=== PATIENT | male | born 1975 | race Caucasian/White ===

== ENCOUNTER 2023-11-22 16:41 | Emergency (ER) | payer OTHER, SELFPAY ==
[2023-11-22 16:43] VITALS: BP 149/101; PULSE 97; RESP 18; TEMP 36.4; O2SAT 98; BMI 22.4
--- NOTE | 2023-11-22 17:24 | ED_ITS ---
HPI - Dental/Oral General Date Seen: 11/22/23 Chief complaint: Dental/Oral/Mouth Injury/Pain Stated complaint: Tooth infection L side Time Seen by Provider: 11/22/23 17:01 Source: patient Mode of arrival: ambulatory Limitations: no limitations History of Present Illness HPI Narrative: Patient is a 48-year-old male with a history of dental problems have been getting worse over the past 6 months. States over the past few days he is having pain is left lower 2. Started about 3-4 days ago go by been getting worse. Today he states he had take 15 aspirin trying help with the pain with m inimal improvement. States it hurts when he chews to that area or if he touches the area of concern. States is the only day he has been taking aspirin. Says he took what 7 or 8 of them shortly prior to coming. Admits he has quite a bit of dental issues and needs to see a dentist but currently does not have insurance. Denies trismus, sore throat, dyspnea, weakness, numbness, fevers, chills Related Data Previous Rx's Medication Instructions Recorded amoxicillin 875 mg-potassium 1 tab PO BID #10 tabs 11/22/23 clavulanate 125 mg tablet Allergies Allergy/AdvReac Type Severity Reaction Status Date / Time No Known Drug Allergies Allergy Verified 11/22/23 16:50 Review of Systems Narrative: pertinent systems reviewed and were negative unless stated in HPI Exam Narrative: Exam Narrative: Const: Well-nourished, Well-developed, in mild distress Eyes: PERRL, no conjunctival injection, and symmetrical lids HENT: Atraumatic external nose and ears. Moist mucous membranes, poor dentition with multiple missing teeth and dental caries. There is what appears to be a portion of tooth left in the socket at about tooth 18 consistent with where his pain is. No swelling noted underneath his tongue, uvula midline, no tonsillar exudate or swelling Neck: Symmetric, trachea midline, No thyromegaly. CVS: RRR, No murmurs or gallops. Peripheral pulses 2+ and equal in all extremities RESP: Unlabored respiratory effort. Clear to auscultation bilaterally. GI: Nontender/Nondistended, No rebound or guarding. MSK:Extremities w/o deformity, Normal Active ROM Skin: Warm, Dry. No rashes or lesions. Neuro: Normal Muscle tone, No focal neurological deficits. Psych: Awake, Alert, & Oriented x3. Appropriate mood and affect. Const: Vital Signs, click to edit/add: Vital Signs - 24 hr 11/22/23 16:43 Temperature 97.6 F Pulse Rate [Pulse Oximeter] 97 Respiratory Rate 18 Blood Pressure [Ri ght Upper Arm] 149/101 H Pulse Oximetry 98 Oxygen Delivery Me thod Room Air Course Vital Signs Vital signs: Initial Vital Signs Temperature 97.6 F 11/22/23 16:43 Temperature Source Temporal Artery Scan 11/22/23 16:43 Pulse Rate 97 11/22/23 16:43 Respiratory Rate 18 11/22/23 16:43 Blood Pressure 149/101 H 11/22/23 16:43 Blood Pressure Mean 117 H 11/22/23 16:43 Blood Pressure Position Sitting 11/22/23 16:43 Pulse Oximetry 98 11/22/23 16:43 Oxygen Delivery Method Room Air 11/22/23 16:43 Vital Signs Temperature 97.6 F 11/22/23 16:43 Pulse Rate 97 11/22/23 16:43 Respiratory Rate 18 11/22/23 16:43 Blood Pressure 149/101 H 11/22/23 16:43 Pulse Oximetry 98 11/22/23 16:43 Oxygen Delivery Method Room Air 11/22/23 16:43 Temperature 97.6 F 11/22/23 16:43 Pulse Rate 97 11/22/23 16:43 Respiratory Rate 18 11/22/23 16:43 Blood Pressure 149/101 H 11/22/23 16:43 Pulse Oximetry 98 11/22/23 16:43 Oxygen Delivery Method Room Air 11/22/23 16:43 MDM - Dental/Oral MDM Narrative Medical decision making narrative: patient is a 48-year-old male presenting to the emergency department for dental pain. I can not see the area of concern in there is some mild erythema around it. No signs of drainable abscess. No purulent material. Patient is not showing signs of peritonsillar abscess, Richi angina, retropharyngeal abscess,Lemierre disease or any other concerning oral pharynx or deep neck space abscesses. Imaging is not necessary. He is unable to see dentist due to difficulty having insurance and I spoke to about [facility] dental insurance and gave him phone numbers to call to try and set it up. I informed him I do not know if he will qualify but is a place to start. Will also prescribe him antibiotics. I spoke to him about all the aspirin he has been taking. While the amount he is taking is very unlikely to be a lethal dose at this time I did speak to him about doing lab work to confirm that he is not having any overdose from it. He declined labs at this time and said he is doing well And does not think he needs them. We had a long talk about the risks and benefits of this and he decided against the labs. Since his lab work is otherwise doing well in each hook under the expected lethal does I am comfortable not doing the lab work at this time but did inform him on the dangers of taking too many aspirin. He states he understands. Discharge Plan Discharge Clinical Impression: Dental caries Patient Disposition: Home, Self-Care Condition: Stable Prescriptions: New amoxicillin-pot clavulanate 875-125 mg tablet 1 tab PO BID Qty: 10 0RF
== END 2023-11-22 17:39 | disposition home or self-care (01) ==
LOC: ED 17:35
PROVIDERS: Emergency Provider Student in an Organized Health Care Education/Training Program; PCP Family Medicine
DX: K02.9 Dental caries, unspecified (principal)
CPT/HCPCS: 99282; 99283